=== PATIENT | female | born 1950 | race Caucasian/White ===

== ENCOUNTER 2022-03-06 07:47 | Observation (INO) ==
--- NOTE | 2022-02-05 16:25 | PAT Medication Instructions ---
Medication Instructions Date of Service February 05, 2022 Home Medications calcium carbonate 600 mg-vitamin D3 20 mcg (800 unit) chewable tablet (Caltrate 600 plus D) 1 tab PO BID zolmitriptan 5 mg tablet (Zomig) 1 tab PO DIRECTED PRN Excedrin Migraine 1 tab PO Q6H PRN Centrum Silver Women 1 tab PO QAM naproxen sodium 220 mg tablet (Aleve) 440 mg PO HS PRN rosuvastatin 5 mg tablet 5 mg PO HS ASK your surgeon for instructions Excedrin Migraine 1 tab PO Q6H PRN naproxen sodium 220 mg tablet (Aleve) 440 mg PO HS PRN DO NOT take the morning of surgery calcium carbonate 600 mg-vitamin D3 20 mcg (800 unit) chewable tablet (Caltrate 600 plus D) 1 tab PO BID Centrum Silver Women 1 tab PO QAM Take morning of surgery With a small sip of water, OTHERWISE NOTHING TO EAT OR DRINK AFTER MIDNIGHT: zolmitriptan 5 mg tablet (Zomig) 1 tab PO DIRECTED PRN (if needed) Take evening before surgery calcium carbonate 600 mg-vitamin D3 20 mcg (800 unit) chewable tablet (Caltrate 600 plus D) 1 tab PO BID zolmitriptan 5 mg tablet (Zomig) 1 tab PO DIRECTED PRN (if needed) rosuvastatin 5 mg tablet 5 mg PO HS Other Notes If you have any questions please call us at [phone] or [phone] or [phone] or [phone]
--- NOTE | 2022-02-07 12:16 | History & Physical Report ---
Date of Service February 07, 2022 date of surgery: 03/06/22 Procedure: left Total Knee Arthroplasty Surgeon: Francisco Worthington Assessment & Plan (1) Arthritis of knee, left: Plan: Further care discussed with patient and at this point in time has failed conservative measures and would like to proceed with a left total knee replacement. Plan on discharge will be home with home health physical therapy. DVT prophylaxiswith TEDs, SCDs and will also place on aspirin 81 mg p.o. b.i.d. for a month postop. Patient will have follow up appointment in our office two weeks post op for staple/suture removal and re-evaluation. Patient otherwise has no other questions or concerns. The risks and benefits have been discussed including, but not limited to, risk of infection, nerve injury, stiffness, loss of motion, failure to improve, etc. Reasonable outcomes and options of treatment were discussed. An explanation of appropriate alternatives to the procedure that may be advantageous were discussed and their risks and benefits, as well as the risks and benefits of not proceeding with treatment. I offered to answer any additional inquiries concerning the treatment involved. All the patient's questions were answered. The patient is agreeable, understanding of the treatment plan and alternatives, and wishes to proceed with the treatment plan. History of Present Illness Chief Complaint: left knee pain Primary Care Provider: Joellen Russ PA-C Aimee is a 71 year old who complains of left knee pain, presents for pre-op evaluation prior to a left total knee replacement. she complains of pain and stiffness in her left knee. Currently the patient states that the symptoms are moderate-severe and rated 7/10. The pain is described as aching, sharp and throbbing. her symptoms are aggravated by ascending stairs, daily activities, first steps while awake walking. Prior NSAIDs include Aleve and she also uses T ylenol. she has been treated with previous cortisone injections in the past without much relief. Allergies Allergy/AdvReac Type Severity Reaction Status Date / Time No Known Allergies Allergy Verified 02/05/22 14:49 Home Medications Medication Instructions Recorded Confirmed Type calcium carbonate 600 mg-vitamin 1 tab PO BID 04/30/18 02/05/22 History D3 20 mcg (800 unit) chewable tablet (Caltrate 600 plus D) zolmitriptan 5 mg tablet (Zomig) 1 tab PO DIRECTED PRN 04/30/18 02/05/22 History kxsskng-vwxrwbcihtggx-dllbcqat 250 1 tab PO Q6H PRN 02/05/22 02/05/22 History mg-250 mg-65 mg tablet (Excedrin Migraine) multivit with 1 tab PO QAM 02/05/22 02/05/22 History lijbnarv-wnbf-OP-lutein 8 mg iron-400 mcg-300 mcg tablet (Centrum Silver Women) naproxen sodium 220 mg tablet 440 mg PO HS PRN 02/05/22 02/05/22 History (Aleve) rosuvastatin 5 mg tablet 5 mg PO HS 02/05/22 02/05/22 History Past Med/Surg History Medical History Hyperlipidemia Migraine Osteopenia Sleep apnea Cannot tolerate device Thyroid nodule Under surveillance Surgical History H/O colonoscopy History of breast biopsy MULTIPLE (NEGATIVE) History of herniorrhaphy LEFT ABDOMINAL History of tooth extraction S/P thyroid biopsy BENIGN Status post right knee replacement Right knee arthroplasty (06/10/18): SAB at L3/4 (x1 attempt) + PNB at [facility]. No issues noted per post-op anesthesia progress note. Right Total Knee Arthroplasty(Right) utilizing Lima & Nephew journey 2 non- block total knee arthroplasty size 4 femur 3 tibia 10 polyethylene 29 oval patella Family History Grandfather Family history of diabetes mellitus MATERNAL GRANDFATHER Social History Smoking Status: Never smoker Second Hand Exposure: No; Hx Alcohol Use: Yes Alcohol type: wine Hx Substance Use: No Preferred Language: Micronesian Communication Ability: Effective Skid Machine Operator Required: No Beliefs That Will Affect Care: None Current Living Situation: Spouse Feels Safe at Home: Yes Assistive Devices: Glasses Review of Systems Review of Systems: All systems reviewed & are unremarkable except as noted in HPI & below Constitutional: no fever, no chills and no sweats Respiratory: no cough and no dyspnea Cardiovascular: no chest pain, no dyspnea and no orthopnea Gastrointestinal: no abdominal pain, no nausea and no vomiting Musculoskeletal: as per Subjective / HPI Physical Exam Physical Exam: HT: 5ft 2in WT: 72.6kg Constitutional: WD/WN, vitals as above no acute distress Respiratory: normal respiratory effort, lungs clear to auscultation no respiratory distress, no labored breathing and does not use accessory muscles Cardiovascular: RRR, no murmur, no edema Gastrointestinal (Abdomen): normal bowel sounds, soft, nontender, no hepatosplenomegaly Musculoskeletal: Knee: + knee abnormal to inspection (left knee-), + effusion (+1 effusion), + limited ROM of knee (ROM 0/3/110), + knee ROM with crepitation, + joint line tenderness (medial joint line) and + Laurie's sign positive; no deformity, no skin erythema, no ecchymosis, no valgus laxity, no varus laxity, anterior drawer test negative, Sohail's sign negative and pivot shift test negative Results & Data Results & Data ([facility]) Diagnostic Findings Left Knee X-ray: left knee series confirm advanced degenerative changes to the left knee, greatest medial compartments and patellofemoral joint, showing joint space narrowing, osteophyte formation and subchondral sclerosis. no acute bony pathology noted.
--- NOTE | 2022-02-08 13:25 | Anesthesiology Consultation ---
Date of Service February 08, 2022 Assessment & Plan (1) Encounter for pre-operative examination: - COVID screening: Per assessment on 02/08: No known COVID-19 positive contacts or current COVID-19 related symptoms. Travel screen negative. Patient vaccinated. Surgeon arranging preop COVID testing. Awaiting results. - S/P Right knee arthroplasty (06/10/18): SAB at L3/4 (x1 attempt) + PNB at [facility]. No issues noted per post-op anesthesia progress note. Chart Review Chart Review: Acceptable Risk for Surgery and Patient seen in Pre Admission Testing Teaching & Discussion Pre-Anesthesia Teaching/Discussion Notes: Instructed NPO after midnight before surgery,except medications with 15 cc of water. Medication instructions provided according to the PAT guidelines. History Surgery Operation Date: 03/06/22 08:15 Proposed Procedures p Left Total Knee Arthroplasty - Francisco Worthington DO Height/Weight Height: 5 ft 2 in Weight: 74.3 kg Allergies Allergy/AdvReac Type Severity Reaction Status Date / Time No Known Allergies Allergy Verified 02/05/22 14:49 Medications Home Medications Medication Instructions Recorded Confirmed Last Taken calcium carbonate 600 mg-vitamin 1 tab PO BID 04/30/18 02/05/22 06/08/18 D3 20 mcg (800 unit) chewable tablet (Caltrate 600 plus D) zolmitriptan 5 mg tablet (Zomig) 1 tab PO DIRECTED PRN 04/30/18 02/05/22 06/06/18 08:00 sljwewn-hdojpulraruvp-ukxgtkvx 250 1 tab PO Q6H PRN 02/05/22 02/05/22 Unknown mg-250 mg-65 mg tablet (Excedrin Migraine) multivit with 1 tab PO QAM 02/05/22 02/05/22 Unknown ezthlnam-kezy-KR-lutein 8 mg iron-400 mcg-300 mcg tablet (Centrum Silver Women) naproxen sodium 220 mg tablet 440 mg PO HS PRN 02/05/22 02/05/22 Unknown (Aleve) rosuvastatin 5 mg tablet 5 mg PO HS 02/05/22 02/05/22 Unknown Past Medical History Medical History Hyperlipidemia Migraine Osteopenia Sleep apnea Cannot tolerate device Thyroid nodule Under surveillance Exercise / Class Metabolic Activity II 4-5 Yardwork/Stairs/Walk up hill (one FS (no CP, no SOB)) Past Family History Family History Grandfather Family history of diabetes mellitus MATERNAL GRANDFATHER Past Surgical History Surgical History H/O colonoscopy History of breast biopsy MULTIPLE (NEGATIVE) History of herniorrhaphy LEFT ABDOMINAL History of tooth extraction S/P thyroid biopsy BENIGN Status post right knee replacement Right knee arthroplasty (06/10/18): SAB at L3/4 (x1 attempt) + PNB at [facility]. No issues noted per post-op anesthesia progress note. Past Anesthesia History No Hx of Anesthesia Complications and No Family Hx of Anesthesia Complications History of PONV No Hx of PONV and No Hx of Motion Sickness Social History Smoking Status: Never smoker Do You Dip or Chew Tobacco: No Hx Alcohol Use: Yes Alcohol type: wine alcohol intake frequency: holidays/special occasions only Hx Substance Use: No Review of Systems Patient denies chest pain, shortness of breath, dyspnea on exertion, fever, chills, cough, wheezing, palpitations. Physical Exam Vital Signs VITALS BP 138/75 P 57 TEMP 98.3 SP02 95%RA RESP 16 PHYSICAL Full cervical extension range of motion. Full TMJ range of motion. TMD 2.5 finger breaths Mallampati Score 3 Dentition: intact, upper front implant Lungs: clear throughout to auscultation Cardiac: regular rate and rhythm, no murmurs noted Spine: normal Carotid arteries: negative bruit Extremities: no edema Lab Results Anesthesia Preop Results Results Anesthesia Widget: WBC 6.39 K/uL (4.8-10.8) 02/08/22 Hgb 13.1 g/dL (12.0-16.0) 02/08/22 Hct 40.6 % (37-47) 02/08/22 Plt 279 K/uL (130-400) 02/08/22 Na 140 mmol/L (136-145) 02/08/22 K 4.0 mmol/L (3.5-5.1) 02/08/22 Cl 104 mmol/L (98-107) 02/08/22 CO2 30 mmol/L (21-32) 02/08/22 BUN 12 mg/dl (6-23) 02/08/22 Creat 0.63 mg/dl (0.6-1.2) 02/08/22 Glucose Level 81 mg/dl (70-99(Fasting)) 02/08/22 PT 10.8 Seconds (9.0-12.0) 02/08/22 PTT 27.3 Seconds (21.0-31.0) 02/08/22 INR 1.0 (0.9-1.1) 02/08/22 HA1c 5.4 % (4.5-5.6) 02/08/22 Urine Color Yellow 02/08/22 Urine Appearance Clear (Clear) 02/08/22 Urine pH 6.5 (4.5-7.5) 02/08/22 Urine Specific [place] 1.014 (1.000-1.030) 02/08/22 Urine Protein Negative (Negative) 02/08/22 Urine Glucose (UA) Negative (Negative) 02/08/22 Urine Ketones Negative (Negative) 02/08/22 Urine Blood Negative (Negative) 02/08/22 Urine Nitrite Negative (Negative) 02/08/22 Urine Bilirubin Negative (Negative) 02/08/22 Urine Urobilinogen Negative (Negative) 02/08/22 Urine Leukocyte Esterase 1+ (Negative) H 02/08/22 Urine WBC (Auto) 1-5 /hpf (0-5) 02/08/22 Urine RBC (Auto) 0-4 /hpf (0-4) 02/08/22 Urine Hyaline Casts (Auto) 0 /lpf (0-5) 02/08/22 Urine Epithelial Cells (Auto) 10-20 /lpf (0-5) H 02/08/22 Urine Bacteria (Auto) Negative (Negative) 02/08/22 Blood Type O Negative 02/08/22 Antibody Screen NEGATIVE 02/08/22 Testing Electrocardiogram Date: 02/08/22 NSR at 64bpm. Chest X-Ray Date: 02/08/22 FINDINGS: PA and lateral chest radiographs are compared to study dated 05/04/2018. The cardiomediastinal silhouette is unremarkable. Chronic inter stitial thickening is similar to previous. There is mild bibasilar scarring/atelectasis. The lungs and pleural spaces are otherwise clear. There is no pneumothorax. The skeletal structures are osteopenic. The bony thorax appears intact. IMPRESSION: No active disease in the chest.
[~2022-03-06 07:47] MED LIST: ACETAMINOPHEN 500 MG TAB PO SCH; BUPIVACAINE 0.25% 30 ML VIAL ONE; BUPIVACAINE 0.5 % 5 MG/1 ML PF 10ML VIAL ONE; CeleBREX 200 MG CAP PO SCH; DEXAMETHASONE SOD INJ 4 MG/ML VIAL ONE; EPINEPHrine INJ 1 MG/ML AMP ONE; FAMOTIDINE 20 MG TAB PO SCH; GABAPENTIN 300 MG CAP PO SCH; LR 500ML BOLUS, THEN 15ML/HR IV SCH; METOCLOPRAMIDE HCL 10 MG TABLET PO SCH; ROPIVACAINE 0.5% HCL/PF 150 MG, BUPIVACAINE 0.75% MPF 20 ML, EPINEPHrine 30MG/30ML (OR ... INSTIL SCH; TRANEXAMIC ACID 1,000 MG **IV Intra-op IV SCH; TRANEXAMIC ACID 1,000 MG **IV Pre-op IV SCH; ceFAZolin 1000MG 1,000 MG/7.5 ML SYR IV SCH; dexAMETHasone 4 MG TAB PO SCH
[2022-03-06] MEDS ORDERED: fentaNYL citrate 100 MCG/2 ML VIAL ONE (09:02)
[2022-03-06] MEDS ORDERED: MIDAZOLAM HCL 1 MG/ML 2ML VIAL ONE (09:02)
--- NOTE | 2022-03-06 10:01 | History & Physical Bridge Note ---
Date of Service March 06, 2022 History & Physical Bridge Note I have examined the patient, reviewed the History & Physical and in the interval since the performance of the History & Physical I have noted the following changes of clinical significance: no changes noted
[2022-03-06] MEDS ORDERED: ORTHO JOINT ANESTHETIC ONE (10:22)
[2022-03-06] MEDS ORDERED: ONDANSETRON INJ 2 MG/ML 2 ML VIAL IV PRN ×2 (10:51→13:54)
[2022-03-06] MEDS ORDERED: fentaNYL citrate 100 MCG/2 ML VIAL IV PRN (10:51)
[2022-03-06] MEDS ORDERED: ePHEDrine sulfate 50 MG/ML AMP IV PRN (10:51)
[2022-03-06] MEDS ORDERED: ATROPINE SULFATE 0.1 MG/ML 10ML SYR IV PRN (10:51)
[2022-03-06] MEDS ORDERED: PROPOFOL IV EMULSION 10 MG/ML 20 ML VIAL IV ONE (11:17)
[2022-03-06] MEDS ORDERED: ONDANSETRON INJ 2 MG/ML 2 ML VIAL ONE (11:17)
--- NOTE | 2022-03-06 12:11 | Operative Report ---
Post Operative Report Pre & Post Diagnosis Operation Date: 03/06/22 10:30 Pre-Op Diagnosis: Left Knee Osteoarthritis Post-Op Diagnosis: Left Knee Osteoarthritis I identified the patient and participated in the time-out.: Yes Procedure Operation Date: 03/06/22 10:30 Actual Procedures p Left Total Knee Arthroplasty(Left utilizing Lima & Nephew renea 2 patient matched total knee arthroplasty size femur for left tibia to left polytwelve left patella 32 oval Francisco Worthington DO Surgeon Francisco Worthington DO Senior Linux Engineer ANTONIA Charlton Estimated Blood Loss 5 Findings Consistent with Post-Op Diagnosis Patient presents with severe end-stage tricompartmental degenerative joint disease of left knee with [id number] subchondral sclerosis marginal osteophytes moderate to large effusion and eburnated [id number] Specimens Bone and cartilage Drains Medium bore Hemovac Anesthesia Type MAC Spinal Regional Complications none Disposition Accompanied Patient To Recovery: No Disposition: Recovery Room Indications Patient presents with severe end-stage DJD left knee after failing attempts at conservative management failing physical therapy anti-inflammatories relative rest activity modification corticosteroid injection viscosupplementation above intraoperative findings were noted. Description of Procedure After proper prepping and draping of the left lower extremity anterior midline incision was made over the region of the extensor extensor mechanism after meticulous hemostasis was obtained and maintained in subcutaneous tissues a medial parapatellar incision was made The patella was subluxed lateralward the medial lateral gutter were cleaned from any hypertrophic synovitis and scar tissue of the distal femoral block was placed and the distal femoral osteotomy cut was made subsequently the chamfers anterior and posterior osteotomy cuts were made utilizing the 4-in-1 block the tibia was subsequently subluxed anteriorward medial and ateral meniscal remnants were excised in their entirety remnants of the anterior and posterior cruciate ligaments were excised in their entirety excellent exposure of the proximal tibia was obtained the tibial osteotomy guide was placed on the proximal tibial osteotomy cut was made once again the knee was irrigated with copious amounts of sterile saline solution the patella was subsequently everted lateralward thickened scar tissue around the patella was removed the patella was subsequently cut utilizing a freehand technique and was drilled prepared for final preparation and placement of patella socially flexion-extension gaps were checked and the equal and symmetric trials were placed to the appropriate femoral and tibial trials with poly-spacer being placed for equal flexion and extension gaps and full range of motion including extension to 0 and flexion to 140 the trial components after having been taken to recovery range of motion was subsequently removed meticulous hemostasis was obtained and maintained subsequently a knee block injection of joint cocktail including ropivacaine 0.5% 150 mg. Bupivacaine 0.5% epinephrine 1-200,030 mL's toradol 30 mg dexamethasone 4 mg ketamine 10 mg clonidine 100 micrograms normal saline solution 30 mg was infiltrated into the soft tissues of the posterior knee medial lateral gutters and periosteal synovium special attention was paid to protect neurovascular structures at all times subsequently trial components having been removed the knee was irrigated with sterile saline solution. debris was removed the proximal tibia was subsequently prepared and was made ready for the placement of the tibial component tibial component was also cemented and tamped into position the femoral component was subsequently placed and cemented in the position the patellar component was subsequently cemented in position because hemostasis once again obtained and maintained wound having been thoroughly irrigated with debridement and debridement lavage was performed as well as a medial parapatellar incision closed with #1 Vicryl in interrupted fashion subcutaneous was closed with #2 Vicryl skin was closed with skin clips. PA-C was necessary for prepping and drapping as well as wound closure of deep fascia Sub cutaneous tissue and skin and was necessary for the case. A sterile compressive dressing was placed patient was taken to recovery in stable condition of report dictated by Ander I attest to the content of the Intraoperative Record and any orders documented therein. Any exceptions are noted below.Due to the complex nature of the procedure, the entire surgery was performed with the operational assistance of Bryan KNIGHT. The sales assistant institutional sales, under direct supervision, was involved in the actual performance of all aspects of the surgical procedure including hemostasis, tissue retraction and incision, instrument management, patient positioning, and wound closure. I attest to the content of the Intraoperative Record and any orders documented therein. Any exceptions are noted below.
[2022-03-06] MEDS ORDERED: HYDROmorphone INJ 0.5 MG/0.5 ML SYR IV PRN (13:54)
[2022-03-06] MEDS ORDERED: bisacodyL 10 MG SUPP PR PRN (13:54)
[2022-03-06] MEDS ORDERED: diphenhydrAMINE 50 MG/ML VIAL IV PRN (13:54)
[2022-03-06] MEDS ORDERED: oxyCODONE HCL IR 5 MG TAB (IMMEDIATE RELEASE) PO PRN (13:54)
[2022-03-06] MEDS ORDERED: MAGNESIUM HYDROXIDE SUSP 30 ML UDC PO PRN (13:54)
[2022-03-06] MEDS ORDERED: NALOXONE HCL 0.4 MG/1 ML VIAL/CARP IV PRN (13:54)
--- NOTE | 2022-03-06 13:55 | XRay Report ---
XR knee LT 1 or 2V routine HISTORY: 71 years-old Female Surgical Post Op [knee total joint arthroplasty COMPARISON: Knee radiographs 09/30/2017 TECHNIQUE: 2 views of the left knee FINDINGS: Left knee total joint arthroplasty with patellar resurfacing. A surgical drainage catheter is in plac e with expected postoperative soft tissue swelling and deep tissue air. No acute fracture, dislocatio n or unexpected opaque foreign body. IMPRESSION: Total joint arthroplasty with expected postoperative changes. ACT 112: Negative or not required by law. The above report was generated using voice recognition software. It may contain grammatical, syntax o r spelling errors. Electronically signed by: Kimani Barron M.D. 03/06/2022 1:53 PM
[2022-03-06] MEDS: SODIUM CHLORIDE 0.9% 1000ML 1,000 ML IV SCH ×2 (14:10→23:59)
--- NOTE | 2022-03-06 15:32 | Anesthesiology Progress Note ---
Date of Service March 06, 2022 Anesthesia Post Procedure Vital Signs Vital Signs: Temp Pulse Pulse Resp BP Pulse Ox 03/06/22 15:02 36.3 C L 53 L 12 104/67 98 03/06/22 14:30 36.4 C L 62 16 100/63 96 03/06/22 14:00 36.4 C L 65 18 106/70 98 03/06/22 13:35 36.4 C L 62 17 130/62 97 03/06/22 13:25 36.4 C L 79 17 100/69 100 03/06/22 13:15 76 19 112/63 97 03/06/22 13:05 71 19 126/56 L 97 03/06/22 12:57 36.8 C 74 16 123/64 97 03/06/22 08:28 36.8 C 65 20 152/69 H 99 Transfer of Care Handoff Completed per policy Notes Mental Status: alert / awake / arousable Patient Amnestic to Procedure: Yes Nausea / Vomiting: adequately controlled Pain: adequately controlled Airway Patency, RR, SpO2: stable & adequate BP & HR: stable & adequate Hydration State: stable & adequate Neuraxial Anesthesia: was administered and sensory block is resolving Anesthetic Complications: no major complications apparent and Pt Satisfied with anesthetic care
[2022-03-06] MEDS: ACETAMINOPHEN 500 MG TAB PO SCH (15:54)
[2022-03-06] MEDS: ceFAZolin 1000MG 1,000 MG/7.5 ML SYR IV SCH (20:04)
[2022-03-06] MEDS: ASPIRIN 81 MG ECTAB PO SCH (20:18)
[2022-03-06] MEDS: CALCIUM 600MG + VIT D 400 IU TAB PO SCH (20:18)
[2022-03-06] MEDS: DOCUSATE SODIUM 100 MG CAP PO SCH (20:19)
[2022-03-06] MEDS ORDERED: ROSUVASTATIN CALCIUM 5 MG TAB PO SCH (21:00)
[2022-03-06] MEDS ORDERED: SENNA 8.6 MG TAB PO SCH (21:00)
[2022-03-07] MEDS: ceFAZolin 1000MG 1,000 MG/7.5 ML SYR IV SCH (04:01)
[2022-03-07 06:41] LABS: Hematocrit (blood only) 34.8 % (37-47); Hemoglobin 11.3 g/dL (12.0-16.0); Mean Corpuscular Hemoglobin 29.1 pg (25-34); Mean Corpuscular Hgb Conc 32.5 g/dL (32-36); Mean Corpuscular Volume 89.7 fL (80-100); Mean Platelet Volume 11.1 fL (7.4-10.4); Platelet Count 250 K/uL (130-400); RDW Coefficient of Variation 13.2 % (11.5-14.5); RDW Standard Deviation 43.4 fL (36.4-46.3); Red Blood Count 3.88 M/uL (4.2-5.4); White Blood Count 14.26 K/uL (4.8-10.8)
[2022-03-07 07:06] LABS: BUN Creatinine Ratio 22.4 (10-20); Creatinine Clr Calc Pharmacy 84.8 ml/min; Est GFR (African American) 108.2 ml/min; Est GFR (Non-African American) 93.4 ml/min; Potassium 4.3 mmol/L (3.5-5.1)
--- NOTE | 2022-03-07 08:37 | Orthopedic Progress Note ---
Date of Service March 07, 2022 Assessment & Plan (1) Arthritis of knee, left: Plan: Postop day 1 status post left total knee arthroplasty. PT/OT protocols. Weightbearing as tolerated. DVT prophylaxis-aspirin p.o. twice daily, SCDs, [place] peace. Pain management as written. DC planning-patient is hoping for home health services upon discharge. We will stop back later today to see how she is progressing. Plan for possible discharge to home today. Admission and Anticipated Discharge Date Admission Date: March 06, 2022 Subjective Postop day 1 Patient sitting up in her chair eating breakfast. States she is having a little bit of discomfort this morning but is tolerating well. Denies shortness of breath, chest pain, lightheadedness. No other complaints. He is hoping to go home today. Physical Exam Physical Exam: Dressings are clean, dry, and intact. Calves are soft and nontender. Neurovascular is intact. Toes are mobile. She has good dorsiflexion and plantarflexion of the left foot. Hemovac drainage was 125 mL from the previous shift. Results & Data ([facility]) Vital Signs (Past 12 Hours) Vital Signs Temp Pulse Resp BP Pulse Ox 03/07/22 07:14 36.4 C L 62 14 132/70 98 03/07/22 03:21 36.5 C 58 L 17 123/70 96 03/06/22 23:00 36.4 C L 53 L 17 109/68 96 Laboratory Results Laboratory Results WBC 14.26 K/uL (4.8-10.8) H 03/07/22 06:08 RBC 3.88 M/uL (4.2-5.4) L 03/07/22 06:08 Hgb 11.3 g/dL (12.0-16.0) L 03/07/22 06:08 Hct 34.8 % (37-47) L 03/07/22 06:08 MCV 89.7 fL (80-100) 03/07/22 06:08 MCH 29.1 pg (25-34) 03/07/22 06:08 MCHC 32.5 g/dL (32-36) 03/07/22 06:08 RDW Std Deviation 43.4 fL (36.4-46.3) 03/07/22 06:08 RDW Coeff of Lele 13.2 % (11.5-14.5) 03/07/22 06:08 Plt Count 250 K/uL (130-400) 03/07/22 06:08 MPV 11.1 fL (7.4-10.4) H 03/07/22 06:08 Sodium 138 mmol/L (136-145) 03/07/22 06:08 Potassium 4.3 mmol/L (3.5-5.1) 03/07/22 06:08 Chloride 107 mmol/L (98-107) 03/07/22 06:08 Carbon Dioxide 25 mmol/L (21-32) 03/07/22 06:08 Anion Gap 6 (3-11) 03/07/22 06:08 BUN 13 mg/dl (6-23) 03/07/22 06:08 Creatinine 0.58 mg/dl (0.6-1.2) L 03/07/22 06:08 Est Cr Clr Drug Dosing 84.8 ml/min 03/07/22 06:08 Est GFR ( Amer) 108.2 ml/min 03/07/22 06:08 Est GFR (Non-Af Amer) 93.4 ml/min 03/07/22 06:08 BUN/Creatinine Ratio 22.4 (10-20) H 03/07/22 06:08 Glucose 102 mg/dl (70-99(Fasting)) H 03/07/22 06:08 Calcium 9.0 mg/dl (8.5-10.1) 03/07/22 06:08 SARS-CoV-2, RNA, NAAT NEGATIVE (NEGATIVE) 03/06/22 08:15 Impressions Knee X-Ray 03/06/22 13:05 XR knee LT 1 or 2V routine HISTORY: 71 years-old Female Surgical Post Op [knee total joint arthroplasty COMPARISON: Knee radiographs 09/30/2017 TECHNIQUE: 2 views of the left knee FINDINGS: Left knee total joint arthroplasty with patellar resurfacing. A surgical drainage catheter is in place with expected postoperative soft tissue swelling and deep tissue air. No acute fracture, dislocation or unexpected opaque foreign body. IMPRESSION: Total joint arthroplasty with expected postoperative changes. ACT 112: Negative or not required by law. The above report was generated using voice recognition software. It may contain grammatical, syntax or spelling errors. Electronically signed by: Kimani Barron M.D. 03/06/2022 1:53 PM
[2022-03-07] MEDS ORDERED: MULTIVITAMIN TAB PO SCH (09:00)
[2022-03-07] MEDS: CALCIUM 600MG + VIT D 400 IU TAB PO SCH (09:02)
[2022-03-07] MEDS: ASPIRIN 81 MG ECTAB PO SCH (09:02)
[2022-03-07] MEDS: ACETAMINOPHEN 500 MG TAB PO SCH ×3 (09:02→15:00)
[2022-03-07] MEDS: DOCUSATE SODIUM 100 MG CAP PO SCH (09:02)
--- NOTE | 2022-03-08 11:47 | Discharge Summary ---
Date of Service date of admission: 03-06-22 date of discharge: 03-07-22 Admission HPI Per Admitting Provider Aimee is a 71 year old who complains of left knee pain, presents for pre-op evaluation prior to a left total knee replacement. she complains of pain and stiffness in her left knee. Currently the patient states that the symptoms are moderate-severe and rated 7/10. The pain is described as aching, sharp and throbbing. her symptoms are aggravated by ascending stairs, daily activities, first steps while awake walking. Prior NSAIDs include Aleve and she also uses Tylenol. she has been treated with previous cortisone injections in the past without much relief. Principal Diagnosis left knee arthritis Discharge Exam Musculoskeletal left knee: NVDI, calf SNT, negative diogo sign. DP palpable, able to wiggle toes/ankle movement without difficulty. KETAN dressing clean dry and intact. expected post-operative bruising noted. Discharge Data Allergies Allergy/AdvReac Type Severity Reaction Status Date / Time No Known Allergies Allergy Verified 03/06/22 08:26 Procedures Performed Operation Date: 03/06/22 10:30 Actual Procedures p Left Total Knee Arthroplasty(Left) - Francisco Worthington DO Ordered Studies 03/06/22 05:00 US - OR guided needle placemen Routine Hospital Course (1) Arthritis of knee, left: Postop day 1 status post left total knee arthroplasty. PT/OT protocols. Weightbearing as tolerated. DVT prophylaxis-aspirin p.o. twice daily, FALLON Ram. Pain management as written. DC planning-patient is hoping for home health services upon discharge. We will stop back later today to see how she is progressing. Plan for possible discharge to home today. Total Time Total Time Spent Total Time Spent (In Minutes): 20 Discharge Plan Discharge Items Patient Disposition: Home - Home Health Services Reason For Visit: Left Knee Osteoarthritis Discharge Diagnosis: Left Knee Osteoarthritis Activity: Per Instructions section Weightbearing Comment: as tolerated with walker Non-emergency contact: Surgeon Call non-emergency contact if: your pain is not controlled, your temperature is above 101.5, your wound has increased redness and your wound has increased drainage Follow-up/Referrals: Francisco Worthington DO [Surgeon] - (Follow up with Dr. Worthington or his PA Spenser Ramirez in 2 weeks from the day of surgery for your first post operative visit. Please call for an appointment if one has not been made for you. ) Joellen Russ PA-C [Primary Care Provider] - Diet: Regular Addtl Attending Provider Instructions: USE THE IMMOBILIZER FOR AMBULATING FOR THE NEXT 48-72 HOURS. YOU MAY TAKE IT OFF FOR PT (RANGE OF MOTION TRAINING), SITTING IN A CHAIR ETC. IF YOU CONTINUE TO HAVE ISSUES WITH KNEE BUCKLING, PLEASE CALL THE OFFICE AND CONTINUE WEARING THE BRACE UNTIL SEEN BACK FOR YOUR FIRST POST OPERATIVE VISIT. ACTIVITY RECOMMENDATIONS: SELF CARE INSTRUCTIONS AFTER TOTAL KNEE REPLACEMENT A. You may need to continue a physical therapy program after discharge from the hospital. There are several options available to you. Your doctor will assist you in selecting the best one for you. 1. An out-patient facility 2 to 3 times a week for therapy or home therapy. 2. Continue working on all exercises taught to you in the hospital. Your goals should be to increase bending of your knee to 90 degrees and beyond and to fully straighten your knee. B. You may progress at your own pace from walking with a walker or crutches to a cane; then to no assistive devices. C. Make walking a part of your daily routine. Be up as much as comfortable with rest periods throughout the day. Rest with leg elevation is very important. Use the ice wrap frequently for the first 3-4 weeks. D. There are no restrictions on activities. You may ride in a car, shop, participate in mva operator and all social activities. E. Wear the long elastic stockings (FALLON hose) 20 hours a day for 2 weeks after surgery. They can be removed several times a day for laundering and for a bath. F. You may shower, no tub baths until cleared by your doctor. SPECIAL CARE INSTRUCTIONS: VERY IMPORTANT TO READ AND REVIEW A. There are a few signs you need to watch for after you are home. Call [facility] [place] if you notice any of the followin. Increased severe knee pain. Some pain is expected especially when you exercise. 2. Increased swelling in your leg or knee; pain or swelling of the calf muscle in either lower leg. 3. Any fluid drainage from the incision. 4. Shortness of breath or chest pain. B. Please call [facility] at if you have any concerns or questions about your operation or recovery. The doctor or his nurse will return your call promptly. C. You must take antibiotics before dental work, bladder, bowel or other surgery. Your doctor will provide you with a permanent care to carry describing this precaution. IMPORTANT: * REMEMBER TO TAKE ASPIRIN, 81 MG, TWICE DAILY FOR 4 WEEKS UNLESS OTHERWISE DIRECTED. THIS IS YOUR BLOOD THINNER. * HIGH RISK PATIENTS MAY BE PRESCRIBED A STRONGER BLOOD THINNER. THIS WILL BE PROVIDED AT DISCHARGE. * CALL IF INCREASED PAIN, REDNESS, DRAINAGE OR FEVER GREATER THAT 101. * WEAR FALLON HOSE 20 HOURS PER DAY FOR 2 WEEKS. * KETAN Dressing - This is a large suction dressing covering your incision. This will help pull any excess drainage from the wound and allow your incision to heal properly. You may shower with this if you can keep the unit outside of the shower. If any bleeding or leakage is noted please call your doctor's office. This will remain on your incision for 7 days and then should be removed. This can be done yourself or by the home nursing staff if applicable. The entire unit is disposable once removed. Once removed, keep incision clean and dry. If redness or drainage is noted, please call your surgeon. . FOLLOW UP VISIT: If appointment is not already scheduled: Please call [facility] [place] [place] to make a follow-up appointment for 2 weeks after your surgery at . Stand-Alone Forms: [facility], Opioid Pain Management, Smoking Cessation Medications and DC Order Prescriptions: New aspirin 81 mg Tablet,Delayed Release (Dr/Ec) 81 mg PO BID 30 Days Qty: 60 RF: 0 acetaminophen [Tylenol Extra Strength] 500 mg Tablet 1,000 mg PO Q8H 14 Days Qty: 84 RF: 0 polyethylene glycol 3350 [Miralax] 17 gram powder in packet 17 g PO DAILY PRN (Reason: constipation) Qty: 5 RF: 0 cefadroxil 500 mg capsule 500 mg PO BID Qty: 28 RF: 1 oxycodone 5 mg Tablet 5 mg PO Q4H MDD 6 PRN (Reason: pain) Qty: 30 RF: 0 Continued zolmitriptan [Zomig] 5 mg Tablet 1 tab PO DIRECTED PRN (Reason: Migraine Headache) RF: 0 Caltrate 600 plus D 600 mg (1,500 mg)-800 unit Tablet,Chewable 1 tab PO BID RF: 0 rosuvastatin 5 mg Tablet 5 mg PO HS RF: 0 Centrum Silver Women 8 mg iron-400 mcg-300 mcg Tablet 1 tab PO QAM RF: 0 Discontinued Excedrin Migraine 250-250-65 mg Tablet 1 tab PO Q6H PRN (Reason: headaches) RF: 0 naproxen sodium [Aleve] 220 mg Tablet 440 mg PO HS PRN (Reason: Pain) RF: 0 Discharge Orders: Discharge Order (Routine); Ordered 03/07/22 Ordered By: Bryan Nunez/Other Patient Handouts: DVT Post Op Prevention Admission Data Admit Date/Time: 03/06/22 13:05 Attending Provider: Francisco Worthington Admit Provider: Francisco Worthington Primary Care Provider: Joellen Russ Other Interventions: Discharge Summary Assessment (RN) Last Done: 03/07/22 14:09
== END 2022-03-07 15:20 | disposition home health service (06) ==
LOC: ASU 07:47 → 3E 07:47
DX: Z96.651 Presence of right artificial knee joint; E78.5 Hyperlipidemia, unspecified; M65.862 Other synovitis and tenosynovitis, left lower leg; M17.12 Unilateral primary osteoarthritis, left knee; Z79.899 Other long term (current) drug therapy